=== PATIENT | female | born 1965 | race Caucasian/White ===

== ENCOUNTER 2016-09-18 16:11 | Emergency (ER) | payer BC ==
[2016-09-18 16:21] VITALS: BP 153/76
[2016-09-18] MEDS ORDERED: predniSONE TAB* 20 MG PO ONE (16:31)
[2016-09-18] MEDS ORDERED: Albuterol HFA INHALER* 8 gm MDI INH ONE (16:31)
--- NOTE | 2016-09-18 16:39 | UC ---
Respiratory Complaint HPI - HPI Summary HPI Summary: 51 yo female with cough/runny nose and wheezing x 2 months occasional fever now out of MDI hx JUMANA - History of Current Complaint Chief Complaint: UCRespiratory Stated Complaint: SORE THROAT Time Seen by Provider: 09/18/16 16:24 Hx Obtained From: Patient Hx Last Menstrual Period: n/a Onset/Duration: Gradual Onset, Lasting Weeks Timing: Constant Severity Initially: Mild Severity Currently: Moderate Pain Intensity: 1 Pain Scale Used: 0-10 Numeric Character: Cough: Productive Aggravating Factors: Nothing Alleviating Factors: Nothing Associated Signs And Symptoms: Positive: Fever - intermittent, Wheezing, Nasal Congestion, Sinus Discomfort. Negative: Dyspnea - Allergies/Home Medications Allergies/Adverse Reactions: Allergies Allergy/AdvReac Type Severity Reaction Status Date / Time Sulfa Drugs Allergy Intermediate Hives Verified 09/18/16 16:21 shrimp Allergy Rash Uncoded 09/18/16 16:21 PMH/Surg Hx/FS Hx/Imm Hx Previously Healthy: Yes Endocrine History Of: Denies: Diabetes Cardiovascular History Of: Denies: Cardiac Disorders, Hypertension Respiratory History Of: Reports: Asthma, Bronchitis - Surgical History Surgical History: Yes Surgery Procedure, Year, and Place: L breast calcification 2012. left thumb, CERVICAL BIOPSY - Family History Known Family History: Positive: Hypertension, Diabetes - Social History Alcohol Use: None Substance Use Type: None Smoking Status (MU): Former Smoker Type: Cigarettes Amount Used/How Often: 1/2 PPD Length of Time of Smoking/Using Tobacco: 20+ years Have You Smoked in the Last Year: Yes When Did the Patient Quit Smoking/Using Tobacco: 2 months Household Exposure Type: Cigarettes - Immunization History Most Recent Influenza Vaccination: JAN 2016 Review of Systems Constitutional: Fever Skin: Negative Eyes: Negative ENT: Nasal Discharge Respiratory: Cough Cardiovascular: Negative Gastrointestinal: Negative Genitourinary: Negative Motor: Negative Neurovascular: Negative Musculoskeletal: Negative Neurological: Negative Psychological: Negative All Other Systems Reviewed And Are Negative: Yes Physical Exam Triage Information Reviewed: Yes Appearance: Well-Appearing, No Pain Distress, Well-Nourished Vital Signs: Initial Vital Signs Temp 98.1 F 09/18/16 16:15 Pulse 76 09/18/16 16:15 Resp 18 09/18/16 16:15 BP 153/76 09/18/16 16:15 Pulse Ox 99 09/18/16 16:15 Vital Signs Reviewed: Yes Eyes: Positive: Conjunctiva Clear ENT: Negative: Hearing grossly normal, Nasal drainage, Tonsillar exudate, Trismus, Muffled/hoarse voice Neck: Positive: Supple, Nontender Respiratory: Positive: No respiratory distress, No accessory muscle use, Wheezing Cardiovascular: Positive: RRR, No Murmur Musculoskeletal: Positive: ROM Intact, No Edema Neurological: Positive: Alert Psychological Exam: Normal Skin Exam: Normal UC Diagnostic Evaluation - Laboratory O2 Sat by Pulse Oximetry: 99 - normal/not hypoxic Respiratory Course/Dx - Differential Dx/Diagnosis Provider Diagnoses: acute bronchitis Discharge - Discharge Plan Condition: Stable Disposition: HOME Prescriptions: Amoxicillin (*) [Amoxicillin 875 MG (*)] 875 mg PO BID #20 tab Prednisone [Deltasone] 40 mg PO DAILY #10 tab Patient Education Materials: Acute Bronchitis (ED) Referrals: Dickson Cordero PA [Primary Care Provider] - If Needed Additional Instructions: recheck in 4 days if not better
== END 2016-09-18 16:54 | disposition home or self-care (01) ==
LOC: UCCORT 16:11
DX: J20.9 Acute bronchitis, unspecified (principal); Z87.891 Personal history of nicotine dependence
CPT/HCPCS: 99213; A9270-GY; G0463; J7512

== ENCOUNTER 2017-02-09 19:22 | Emergency (ER) | payer BC ==
[2017-02-09 19:36] VITALS: BP 155/73
[2017-02-09] MEDS ORDERED: Albuterol/Ipratropium NEB.SOL* Albuterol 2.5 MG/Ipratropium 0.5 MG 3 ML INH ONE (20:12)
[2017-02-09] MEDS ORDERED: predniSONE TAB* 20 MG PO ONE (20:52)
--- NOTE | 2017-02-09 21:01 | UC ---
Shortness of Breath HPI - HPI Summary HPI Summary: THREE DAYS OF WORSENING ASTHMA FLARE UPS. HAD ASTHMA FLARE UP 3 DAYS AGO. TREATED WITH ALBUTEROL. HAS HAD SOME WHHEZING SINCE. TODAY WAS IN CONTACT WITH [employer] TODAY ASTHMA WHEEZING SEEMS WORSE. NO CHEST PAIN. NO COUGH. NO FEVER. - History of Current Complaint Chief Complaint: UCRespiratory Stated Complaint: CHEST CONGESTION, ASTHMA Time Seen by Provider: 02/09/17 20:00 Hx Obtained From: Patient Hx Last Menstrual Period: NONE Onset/Duration: Gradual Onset, Lasting Days, Still Present Current Severity: None Aggrevating Factors: Deep Breaths Alleviating Factors: Bronchodilators Associated Signs & Symptoms: Positive: Wheezing - Risk Factors Pulmonary Embolism: Negative Cardiac: Negative Pseudomonas: Negative Tuberculosis: Negative - Allergy/Home Medications Allergies/Adverse Reactions: Allergies Allergy/AdvReac Type Severity Reaction Status Date / Time Sulfa Drugs Allergy Intermediate Hives Verified 02/09/17 19:36 shrimp Allergy Rash Uncoded 02/09/17 19:36 Home Medications: Home Medications Multiple Vitamins W/ Minerals [Centrum Silver 50+Women] 1 tab PO DAILY 02/09/17 [History Confirmed 02/09/17] PMH/Surg Hx/FS Hx/Imm Hx Previously Healthy: Yes - Surgical History Surgical History: Yes Surgery Procedure, Year, and Place: L breast calcification 2012. left thumb, CERVICAL BIOPSY - Family History Known Family History: Positive: Hypertension, Diabetes, Respiratory Disease - Social History Occupation: Employed Full-time Lives: With Family Alcohol Use: Rare Substance Use Type: None Smoking Status (MU): Current Some Day Smoker Type: Cigarettes Amount Used/How Often: 1/2 PPD Length of Time of Smoking/Using Tobacco: 20+ years Have You Smoked in the Last Year: Yes When Did the Patient Quit Smoking/Using Tobacco: 2 months Household Exposure Type: Cigarettes Cessation Counseling: Counseled 3+Min - 10 Min - Immunization History Most Recent Influenza Vaccination: JAN 2016 Review of Systems Constitutional: Negative Skin: Negative Eyes: Negative ENT: Negative Respiratory: Shortness Of Breath, Other - WHEEZING Cardiovascular: Negative Gastrointestinal: Negative Genitourinary: Negative Motor: Negative Neurovascular: Negative Musculoskeletal: Negative Neurological: Negative Psychological: Negative Is Patient Immunocompromised?: No All Other Systems Reviewed And Are Negative: Yes Physical Exam Triage Information Reviewed: Yes Appearance: Well-Appearing, No Pain Distress, Well-Nourished Vital Signs: Initial Vital Signs Temp 97.9 F 02/09/17 19:29 Pulse 82 02/09/17 19:29 Resp 16 02/09/17 19:29 BP 155/73 02/09/17 19:29 Pulse Ox 99 02/09/17 19:29 Vital Signs Reviewed: Yes Eye Exam: Normal ENT Exam: Normal ENT: Positive: Normal ENT inspection, Hearing grossly normal, Pharynx normal, TMs normal Dental Exam: Normal Neck exam: Normal Neck: Positive: Supple, Nontender, No Lymphadenopathy Respiratory: Positive: Chest non-tender, No accessory muscle use, Wheezing. Negative: Respiratory distress, Decreased breath sounds Cardiovascular Exam: Normal Cardiovascular: Positive: RRR, No Murmur, Pulses Normal, Brisk Capillary Refill Abdominal Exam: Normal Abdomen Description: Positive: Nontender, No Organomegaly Musculoskeletal Exam: Normal Neurological Exam: Normal Psychological Exam: Normal Skin Exam: Normal Shortness of Breath Dx - Differential Dx/Diagnosis Differential Diagnosis/HQI/PQRI: Asthma Provider Diagnoses: ASTHMA EXACERBATION Discharge - Discharge Plan Condition: Stable Disposition: HOME Prescriptions: predniSONE TAB* [Deltasone TAB*] 10 mg PO DAILY #28 tab Patient Education Materials: Asthma (ED), Bronchospasm (ED) Referrals: Dickson Cordero PA [Primary Care Provider] -
== END 2017-02-09 21:00 | disposition home or self-care (01) ==
LOC: UCCORT 19:22
DX: J45.901 Unspecified asthma with (acute) exacerbation (principal); F17.210 Nicotine dependence, cigarettes, uncomplicated; Z88.2 Allergy status to sulfonamides; Z91.013 Allergy to seafood
CPT/HCPCS: 99212; A9270-GY; G0463; J7512

== ENCOUNTER 2017-07-04 15:57 | Emergency (ER) | payer BC ==
--- OUTSIDE RECORDS SUMMARY | 2017-07-04 16:08 | XMS REPORT ---
:1965 External Reference #:[id number] Author Organization [facility] Address [address] [place] [id number] Phone [phone] Care Team Providers Name Role Phone Natasha Guido M.D. Care Team Information Supervisor [place] Unavailable Payers Type Date Identification Numbers Payment Provider Subscriber Commercial Effective: Policy Number: Joseph Ralph 2015 [id number] [employer] Name: [address] [address] PayID: [id number] ALEKSANDAR Rogers [address] Problems Description No Active Problems Family History Date Family Member(s) Problem(s) Comments General Diabetes F General Heart Disease Brother - pacer F Social History Type Date Description Comments Cigarette Use Light tobacco smoker (10 or fewer cigarettes/day) ETOH Use Occasionally consumes alcohol Currently Active Patient is currently sexually active STD's No STD History Allergies, Adverse Reactions, Alerts Date Description Reaction Status Severity Comments 03/23/2009 sulfa drugs active Medications Medication Date Status Form Strength Qnty SIG Indications Ordering Provider Albuterol Active Aerosol 90mcg/Act 1unit 2 puffs q4 Unknown /0000 s hrs prn sob Ventolin HFA Active Aerosol 108(90Bas Unknown /0000 e) mcg/Act Flagyl 03/30 Hx Tablets 500mg 14tab 1 by mouth s twice a day Marziale, - x 7 days M.D. 06/09 Diflucan 03/30 Hx Tablets 150mg 2tabs 1 by mouth day 2 and 5 Marziale, - of M.D. 06/09 Cyclobenzaprine HCL Hx Tablets 10mg take 1 Unknown /0000 tablet by - mouth three 02/17 times a day if needed Ibuprofen 00/00 Hx Tablets 800mg take 1 Unknown /0000 tablet by - mouth three 02/17 times a day if needed for pain Methylprednisolone 00 Hx Tablets 4mg take as Unknown (Jonas) /0000 directed - 02/17 Prednisone 00/00 Hx Tablets 20mg take 1 Unknown /0000 tablet by - mouth once 02/17 Azithromycin 00 Hx Tablets 250mg take 1 Unknown /0000 tablet by - mouth once 02/17 Starting Tomorrow Azithromycin 00/ Hx Tablets 250mg take as Unknown /0000 directed - 06/18 Prednisone 00/00 Hx Tablets 20mg take 2 Unknown /0000 tablets by - mouth once 06/18 daily for days Vital Signs Date Vital Result Comment 06/19/2017 BP Systolic 130 mmHg BP Diastolic 84 mmHg Height 64 inches 5'4" Weight 210.00 lb BMI (Body Mass Index) 36.0 kg/m2 06/14/2016 BP Systolic 140 mmHg BP Diastolic 78 mmHg Height 64 inches 5'4" Weight 213.00 lb BMI (Body Mass Index) 36.6 kg/m2 06/09/2015 BP Systolic 122 mmHg BP Diastolic 82 mmHg Height 64 inches 5'4" Weight 205.50 lb BMI (Body Mass Index) 35.3 kg/m2 03/18/2015 BP Systolic 130 mmHg BP Diastolic 82 mmHg Height 64 inches 5'4" Weight 203.12 lb BMI (Body Mass Index) 34.9 kg/m2 02/17/2015 BP Systolic 110 mmHg BP Diastolic 64 mmHg Height 64 inches 5'4" Weight 203.38 lb BMI (Body Mass Index) 34.9 kg/m2 06/03/2014 BP Systolic 130 mmHg BP Diastolic 84 mmHg Height 64 inches 5'4" Weight 206.38 lb BMI (Body Mass Index) 35.4 kg/m2 05/28/2013 BP Systolic 134 mmHg BP Diastolic 86 mmHg Height 64 inches 5'4" Weight 205.38 lb BMI (Body Mass Index) 35.2 kg/m2 05/22/2012 BP Systolic 118 mmHg BP Diastolic 76 mmHg Height 64 inches 5'4" Weight 199.50 lb BMI (Body Mass Index) 34.2 kg/m2 05/17/2011 BP Systolic 118 mmHg BP Diastolic 70 mmHg Height 64 inches 5'4" Weight 200.00 lb BMI (Body Mass Index) 34.3 kg/m2 03/23/2009 BP Systolic 134 mmHg BP Diastolic 62 mmHg Height 64 inches 5'4" Weight 195.00 lb BMI (Body Mass Index) 33.5 kg/m2 Results Test Date Test Result H/L Range Note Laboratory test finding 06/14/2016 ThinPrep Pap Test HPV Normal 1 Regardless High-Risk HPV 06/14/2016 Aptima HPV Normal 2 ThinPrep Pap Test HPV Regardless SEE IMAGE Laboratory test 06/09/2015 Cytology Pap See Note 3 finding Laboratory test 03/18/2015 Affirm Culture -yeast+bv-trich finding Laboratory test 03/18/2015 Vag/Cerv Culture SPECIMEN DESCRI> 4 finding Laboratory test 02/19/2015 Histology [facility] 5 finding <SEE NOTE> Laboratory test 02/19/2015 Urine HCG NEGATIVE (Neg) finding CBC Without Diff 02/17/2015 WBC 5.9 10*3/uL (4.1-11.0) RBC 4.54 10*6/uL (4.00-5.40) HGB 13.2 g/dL (12.0-16.0) HCT 40.5 % (36.0-47.0) MCV 89.1 fL (80.0-95.0) MCH 29.1 pg (27.0-32.0) MCHC 32.6 g/dL (32.0-36.0) RDW 13.4 % (10.5-14.5) PLT 288 10*3/uL (150-450) MPV 9.6 fL (7.1-10.7) Laboratory test 01/13/2015 Surgical Pathology [facility] 6 finding Specimen <SEE NOTE> Laboratory test 12/28/2014 Estradiol @ 21 pg/mL 7 finding Thyroid [place] @ 12/28/2014 TSH,Ultrasensitive @ 0.940 mIU/L (0.360-4.1 70) Laboratory test 12/28/2014 FSH @ 71.6 mIU/mL 8 finding Laboratory test 06/03/2014 Cytology Pap See Note 9 finding Laboratory test 05/28/2013 Cytology Pap See Note 10 finding Laboratory test 05/28/2013 HCG,Quant Preg 2 MIU/ML 11 finding Estradiol @ 50 pg/mL 12 Prolactin @ 7.1 NG/ML 13 Thyroid [place] 05/28/2013 TSH,Ultrasensitive @ 1.500 mIU/L (0.360-4.170 ) @ Laboratory test 05/28/2013 FSH @ 44.3 MIU/ML 14 finding Laboratory test 05/22/2012 [facility] Pap LABORATORY 15 finding ALLIA <SEE NOTE> Xray 05/19/2011 Stero/Local/Guid Left <pending> Breast Biopsy Xray 05/18/2011 Mammography, Diagnostic, <pending> Left Breast Laboratory test 05/17/2011 [facility] Pap LABORATORY 16 finding ALLIA <SEE NOTE> Laboratory test 03/23/2009 [facility] Pap LABORATORY 17 finding ALLIA <SEE NOTE> Laboratory test 03/17/2008 [facility] Pap LABORATORY 18 finding ALLIA <SEE NOTE> 1 SPECIMEN PART A. Cervical, Endocervical, ThinPrep Pap ([employer]) CYTOLOGY HX Other Information:Previous Normal Pap: 2016 Routine Exam FINAL DIAGNOSIS INTERPRETATION: Negative for Intraepithelial Lesion or Malignancy. SPECIMEN ADEQUACY:Satisfactory for evaluation. Endocervical/transformation zone component present. 2 High-Risk HPV HR-HPV: Not Detected Test performed by the FDA-approved Hologic (Gen-Probe) APTIMA HPV test, which detects HPV genotypes: 16, 18, 31, 33, 35, 39, 45, 51, 52, 56, 58, 59, 66, and 68. 3 Interpretation: NEGATIVE FOR INTRAEPITHELIAL LESION OR MALIGNANCY. Specimen Adequacy: SATISFACTORY FOR EVALUATION. Additional Findings: ENDOCERVICAL/TRANSFORMATION ZONE PRESENT. Cytology Laboratory [address] [place] [address], [address] [place] [address] CYTOLOGY REPORT Name: Leni Ralph : 1965 (Age: 49) Sex : F Location: [facility] DIRECTOR OF INDIVIDUAL GIVING Med. Rec. # [id number] Date Collected: 06/09/2015 Billing #: [id number] Date Received: 06/09/2015 Requisition # [id number] Physician(s): NATASHA GUIDO MD Source of Specimen: ENDOCERVICAL/ECTOCERVICAL THIN PREP Clinical Information: Date of Last Menstrual Period: None Provided mas Electronic Signature KEILY Og (ASCP) Reported: 06/14/2015 [employer] Dx Code(s): Z01.419 4 SPECIMEN DESCRIPTION VAGINAL SPECIMEN GROUP B STREP CULT. NEGATIVE: BETA HEMOLYTIC STREPTOCOCCI GROUP B B Y PCR CULTURE RESULTS NORMAL VAGINAL [place] NO NEISSERIA GONORRHOEAE ISOLATED REPORT STATUS FINAL 03/20/[address] [place] [address] Surgical Pathology Report SPECIMEN(S) RECEIVED: A: Endocervical curettings B: Endometrial curettings CLINICAL DIAGNOSIS AND HISTORY: Postmenopausal bleeding GROSS DESCRIPTION: Specimen A received in formalin labeled "endocervical curettings" is a 1.2 x 0.6 x 0.2 cm aggregate of multiple, irregular, fragments of jones red soft tissue and blood tinged mucus. Totally submitted in one cassette, filtered through a biopsy bag. Specimen B received in formalin labeled "endometrial curettings" is a 2.5 x 1.5 x 1.0 cm aggregate of multiple, irregular fragments of jones red soft tissue and dark red clotted blood. Totally submitted in one cassette filtered through a biopsy bag. DIAGNOSIS: A) DESIGNATED ECC: Squamous metaplasia. Multiple levels examined. B) DESIGNATED ENDOMETRIAL CURETTINGS: Inactive endometrium. Multiple levels examined. Processed at Laboratory [facility], Histopathology, [address] [place] [address], [id number]. Reported at Laboratory [facility] at [facility], [address] [place] [address], [phone]. As applicable, positive and negative controls for all immunohistochemical and/or special stains were reviewed and considered appropriate. Reported: 02/22/2015 Electronically Signed Out By Rusty German M.D. [facility] Ava Galvez [facility] This report may include one or more immunohistochemical or in-situ hybridization results. Testing has been developed and the performance characteristics were determined by [facility] as required by CLIA '88 regulations. The tests may not have been approved for a given specific use by the US Food and Drug Administration, but the FDA has determined that such approval is not necessary for clinical use [address] [place] [address] Surgical Pathology Report Specimen(s) Received: A: Endometrial biopsy Clinical Diagnosis and History: {Not Provided} Gross Description: Specimen received in formalin labeled with the patient's name is a 0.5 x 0.4 x 0.1 cm aggregate of multiple irregular, jones white to jones red soft tissue fragments. The specimen is filtered through a biopsy bag and totally submitted in one cassette. emmanuel eb/jbs Diagnosis: DESIGNATED ENDOMETRIAL BIOPSY: Endocervical tissue with extensive squamous metaplasia, ossification, and numerous bacterial colonies. The pattern suggests prolonged Nabothian cyst formation. No definite endometrial cavity tissue is seen on multiple levels examined. Recommend clinical correlation with possible submission of additional material, as clinically indicated. Processed at [facility], Histopathology, [address] [place] [address], [phone]. Reported at [facility] at [facility], [address] [place] [address], [address]. As applicable, positive and negative controls for all immunohistochemical and/or special stains were reviewed and considered appropriate. Reported: 01/15/2015 Electronically Signed Out By Rusty German M.D. paw [facility] Dariana GalvezCDong This report may include one or more immunohistochemical or in-situ hybridization results. Testing has been developed and the performance characteristics were determined by [facility] morris [facility] as required by CLIA '88 regulations. The tests may not have been approved for a given specific use by the US Food and Drug Administration, but the FDA has determined that such approval is not necessary for clinical use. ICD9 Code: A: V71. 7 ESTRADIOL REFERENCE RANGE: MENSTRUATING FEMALES FOLLICULAR PHASE 21-165 PG/ML MIDCYCLE 50-367 PG/ML LUTEAL PHASE 40-259 PG/ML POSTMENOPAUSAL <40 PG/ML NEW METHOD AND REFERENCE RANGE IN USE 05/06/13. RESULTS FROM THIS METHOD ARE SLIGHTLY LOWER THAN RESULTS FROM PREVIOUS METHOD. 8 FSH Reference Range: Males 0.7 - 10.8 mIU/mL Females, Menstruating Follicular Phase 2.3 - 12.6 mIU/mL Mid cycle Peak 5.2 - 17.5 mIU/mL Luteal Phase 1.7 - 12.9 mIU/mL Females, Postmenopausal On Menopausal Hormone Therapy (MHT) 5.9 - 72.8 mIU/mL Not on MHT 12.7 - 132.2 mIU/mL 9 Cytology Laboratory [address] [employer] [facility], [address] [place] [address] CYTOLOGY REPORT Name: Leni Ralph : 1965 (Age: 48) Sex: F Location: [facility] DIRECTOR OF INDIVIDUAL GIVING Med. Rec. # [id number] Date Collected: 06/03/2014 Billing #: [id number] Date Received: 06/03/2014 Requisition # [id number] Physician(s): NATASHA GUIDO MD Source of Specimen: ENDOCERVICAL/ECTOCERVICAL THIN PREP Clinical Information: Date of Last Menstrual Period: None Provided Interpretation: NEGATIVE FOR INTRAEPITHELIAL LESION OR MALIGNANCY. SHIFT IN [place]LLY SUGGESTIVE OF BACTERIAL VAGINOSIS. Specimen Adequacy: SATISFACTORY FOR EVALUATION. Additional Findings: ENDOCERVICAL/TRANSFORMATION ZONE PRESENT. kfs Electronic Signature KEILY Lancaster (ASCP) Reported: 06/05/2014 [facility] Sheldon [employer] [facility] ICD-9 Code(s) V72.31 A; 616.10 10 Cytology Laboratory [address], [address] [place] [address] CYTOLOGY REPORT Name: Leni Ralph : 1965 (Age: 47) Sex: F Location: [facility] DIRECTOR OF INDIVIDUAL GIVING Med. Rec. # [id number] Date Collected: 05/28/2013 Billing #: [id number] Date Received: 05/28/2013 Requisition # [id number] Physician(s): NATASHA GUIDO MD Source of Specimen: ENDOCERVICAL/ECTOCERVICAL THIN PREP Clinical Information: Date of Last Menstrual Period: 04/2013 Specimen Adequacy: SATISFACTORY FOR EVALUATION. ADEQUATE ENDOCERVICAL/TRANSFORMATION ZONE. General Categorization: NEGATIVE FOR INTRAEPITHELIAL LESION OR MALIGNANCY. Descriptive Evaluation: SHIFT IN HOLLY SUGGESTIVE OF BACTERIAL VAGINOSIS. dcl Electronic Signature KEILY Tovar (ASCP) Reported: 05/30/2013 [facility]on [employer] [facility] ICD-9 Code(s) V72.31 A; 616.10 11 INTERPRETATION: LESS THAN 6 NEGATIVE 6 - 10 BORDERLINE (SUGGEST REPEAT IN 48 HOURS) APPROX HCG RANGE WEEKS POST LMP 11 - 130 3 - 4 WEEKS 75 - 2600 4 - 5 WEEKS 850 - 36685 5 - 6 WEEKS 4000 - 097674 6 - 7 WEEKS 75383 - 709024 7 - 12 WEEKS 85673 - 690423 12 - 16 WEEKS 1400 - 12294 16 - 29 WEEKS 940 - 14914 29 - 41 WEEKS 12 ESTRADIOL REFERENCE RANGE: MENSTRUATING FEMALES FOLLICULAR PHASE 21-165 PG/ML MIDCYCLE 50-367 PG/ML LUTEAL PHASE 40-259 PG/ML POSTMENOPAUSAL <40 PG/ML NEW METHOD AND REFERENCE RANGE IN USE 05/06/13. RESULTS FROM THIS METHOD ARE SLIGHTLY LOWER THAN RESULTS FROM PREVIOUS METHOD. 13 Prolactin Reference Range: Males 2.5 - 17.4 ng/mL Females Non- 2.2 - 30.3 ng/mL 8.1 - 347.6 ng/mL Postmenopausal 0.7 - 31.5 ng/mL 14 FSH Reference Range: Males 0.7 - 10.8 mIU/mL Females, Menstruating Follicular Phase 2.3 - 12.6 mIU/mL Mid cycle Peak 5.2 - 17.5 mIU/mL Luteal Phase 1.7 - 12.9 mIU/mL Females, Postmenopausal On Menopausal Hormone Therapy (MHT) 5.9 - 72.8 mIU/mL Not on MHT 12.7 - 132.2 mIU/mL 15 [facility]ORY [facility], [facility]. [address] [place] [id number] GYNECOLOGIC CYTOLOGY REPORT Accession Number: [id number] Source of Specimen(s): A: [facility] Cervical / Endocervical Pap Smear - One Vial Clinical Diagnosis and History: Date of Last Menstrual Period: 04/21/12 Other Clinical Conditions: Last Pap Smear: 05/17/11 REFLEX TO DIGENE HPV ASSAY IF RESULTS OF THIS PAP ARE ASCUS Specimen Adequacy Satisfactory for evaluation Scant/no endocervical component General Categorization Negative for intraepithelial lesion or malignancy Interpretation NEGATIVE FOR INTRAEPITHELIAL LESION OR MALIGNANCY Reported: 05/24/2012 Electronically Signed Out By Usha Arita CT([facility]) [facility] Pathology, PRamon cinda [address] [employer] [facility]. [address] [place] [address] GYNECOLOGIC CYTOLOGY REPORT Accession Number: [id number] Source of Specimen(s): A: [facility] Cervical / Endocervical Pap Smear - One Vial Clinical Diagnosis and History: Date of Last Menstrual Period: 04/26/11 Other Clinical Conditions: Last Pap Smear: 2008 REFLEX TO DIGENE HPV ASSAY IF RESULTS OF THIS PAP ARE ASCUS Specimen Adequacy Satisfactory for evaluation Scant/no endocervical component General Categorization Negative for intraepithelial lesion or malignancy Interpretation NEGATIVE FOR INTRAEPITHELIAL LESION OR MALIGNANCY Reported: 05/19/2011 Electronically Signed Out By Anabelle Horowitz CT([facility]) [facility] Lenny, PDongCDong alvarez 17 [employer] [facility] [employer]. [address] [place] [address] GYNECOLOGIC CYTOLOGY REPORT Accession Number: [id number] Source of Specimen(s): A: [facility] Cervical / Endocervical Pap Smear - One Vial Clinical Diagnosis and History: Date of Last Menstrual Period: 03/11/09 Other Clinical Conditions: Last Pap Smear: 03/07 REFLEX TO DIGENE HPV ASSAY IF RESULTS OF THIS PAP ARE ASCUS Specimen Adequacy Satisfactory for evaluation Scant/no endocervical component General Categorization Negative for intraepithelial lesion or malignancy Interpretation NEGATIVE FOR INTRAEPITHELIAL LESION OR MALIGNANCY Reported: 03/26/2009 Electronically Signed Out By Sienna MICHAUD(ASCP) [facility] mcw ICD9 Code: V72.3 18 [facility], [facility]. [address] [place] [address] GYNECOLOGIC CYTOLOGY REPORT Accession Number: [id number] Source of Specimen(s): A: [facility] Endocervical Pap Smear - One Vial Clinical Diagnosis and History: Date of Last Menstrual Period: 03/04/08 Other Clinical Conditions: REFLEX TO DIGENE HPV ASSAY IF RESULTS OF THIS PAP ARE ASCUS Specimen Adequacy Satisfactory for evaluation Scant/no endocervical component General Categorization Negative for intraepithelial lesion or malignancy Interpretation NEGATIVE FOR INTRAEPITHELIAL LESION OR MALIGNANCY Reported: 03/19/2008 Electronically Signed Out By Usha MICHAUD([facility]) [facility] dss ICD9 Code: V72.31 Procedures Date CPT Code Description Status 02/19/2015 70406 Hysteroscopy:Surgical With BX Of Completed Endometrium,Polypectomy W/Wo D&C 01/13/2015 64771 HSG/Hsono Catheterization And Introduction Of Saline Completed Contrast Encounters Type Date Location Provider CPT E/M Dx Office Visit 06/19/2017 10:00a Main Office Natasha Guido M.D. 99048 Z01.419 Z12.12 Office Visit 06/14/2016 10:20a Main Office Natasha Guido M.D. 46563 Z01.419 Z12.12 Office Visit 06/09/2015 10:20a Main Office Natasha Guido M.D. 46427 Z01.419 Z12.12 Office Visit 03/18/2015 11:30a Main Office Natasha Guido M.D. 81466 N89.8 Office Visit 02/17/2015 10:40a Main Office Natasha Guido M.D. 57943 N95.0 Office Visit 01/13/2015 8:00a Main Office Natasha Guido M.D. 82666 N95.0 Office Visit 06/03/2014 10:00a Main Office Natasha Guido M.D. 88695 V72.31 V76.41 Office Visit 05/28/2013 10:00a Main Office Natasha Guido M.D. 50936 V72.31 V76.41 Office Visit 05/22/2012 10:00a Main Office Natasha Guido M.D. 61832 V72.31 V76.51 Office Visit 05/17/2011 9:40a Main Office Natasha Guido M.D. 21754 V72.31 V76.41 Office Visit 03/23/2009 3:30p Main Office Natasha Guido M.D. 01235 V72.31 V76.41 Office Visit 03/17/2008 2:45p Main Office Natasha Guido M.D. 88351 V72.31 V76.41 Plan of Care Future Appointment(s):06/25/2018 10:00 am - Natasha Guido M.D. 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
[2017-07-04 16:14] VITALS: BP 172/60
--- NOTE | 2017-07-04 17:58 | UC ---
Respiratory Complaint HPI - HPI Summary HPI Summary: cough x 5 days + nasal congestion , pnd, fever, chills, body aches - History of Current Complaint Chief Complaint: UCRespiratory Stated Complaint: FLU SYMPTOMS Time Seen by Provider: 07/04/17 16:08 Hx Obtained From: Patient Hx Last Menstrual Period: NONE Onset/Duration: Gradual Onset, Lasting Weeks - 5, Still Present Timing: Constant Severity Initially: Moderate Severity Currently: Moderate Pain Intensity: 0 Pain Scale Used: 0-10 Numeric Character: Cough: Nonproductive Aggravating Factors: Exertion, Deep Breaths Associated Signs And Symptoms: Positive: Fever, Chills, URI, Nasal Congestion. Negative: Dyspnea, Pleuritic Chest Pain, Wheezing, Hemoptysis, Dizziness, Calf Pain - Allergies/Home Medications Allergies/Adverse Reactions: Allergies Allergy/AdvReac Type Severity Reaction Status Date / Time shrimp Allergy Rash Verified 07/04/17 16:15 Sulfa (Sulfonamide Allergy Hives Verified 07/04/17 16:15 Antibiotics) PMH/Surg Hx/FS Hx/Imm Hx Respiratory History: Asthma - Surgical History Surgical History: Yes Surgery Procedure, Year, and Place: L breast calcification 2012. left thumb, CERVICAL BIOPSY - Family History Known Family History: Positive: Hypertension, Diabetes, Respiratory Disease - Social History Alcohol Use: Rare Substance Use Type: None Smoking Status (MU): Current Some Day Smoker Type: Cigarettes Amount Used/How Often: 1/2 PPD Length of Time of Smoking/Using Tobacco: 20+ years Have You Smoked in the Last Year: Yes When Did the Patient Quit Smoking/Using Tobacco: 2 months Household Exposure Type: Cigarettes - Immunization History Most Recent Influenza Vaccination: JAN 2016 Review of Systems Constitutional: Fever, Chills, Fatigue Skin: Negative Eyes: Negative ENT: Nasal Discharge Respiratory: Cough Cardiovascular: Negative Gastrointestinal: Negative Genitourinary: Negative Motor: Negative Neurovascular: Negative Musculoskeletal: Negative Neurological: Negative Psychological: Negative Is Patient Immunocompromised?: No All Other Systems Reviewed And Are Negative: Yes Physical Exam Triage Information Reviewed: Yes Appearance: Well-Appearing, No Pain Distress, Well-Nourished Vital Signs: Initial Vital Signs Temp 100.7 F 07/04/17 16:10 Pulse 91 07/04/17 16:10 Resp 18 07/04/17 16:10 BP 172/60 07/04/17 16:10 Pulse Ox 100 07/04/17 16:10 Vital Signs Reviewed: Yes Eyes: Positive: Conjunctiva Clear ENT: Positive: Normal ENT inspection, Hearing grossly normal, Pharynx normal, Nasal drainage, TMs normal Neck exam: Normal Neck: Positive: Supple, Nontender, No Lymphadenopathy Respiratory: Positive: Chest non-tender, Lungs clear, Normal breath sounds Cardiovascular: Positive: RRR, No Murmur, Pulses Normal Skin Exam: Normal UC Diagnostic Evaluation - Laboratory O2 Sat by Pulse Oximetry: 100 Respiratory Course/Dx - Differential Dx/Diagnosis Provider Diagnoses: viral illness Discharge - Discharge Plan Condition: Stable Disposition: HOME Prescriptions: Albuterol HFA INHALER* [Ventolin HFA Inhaler*] 2 puff INH Q4H PRN #1 mdi PRN Reason: Wheezing Patient Education Materials: Viral Syndrome (ED) Referrals: Dickson Cordero PA [Primary Care Provider] - 7 Days
== END 2017-07-04 16:43 | disposition home or self-care (01) ==
LOC: UCCORT 15:57
DX: B34.9 Viral infection, unspecified (principal); Z88.1 Allergy status to other antibiotic agents; Z91.013 Allergy to seafood; Z87.891 Personal history of nicotine dependence
CPT/HCPCS: 87502; 99212; G0463

== ENCOUNTER 2018-03-01 21:40 | Emergency (ER) | payer BC ==
[2018-03-01 21:53] VITALS: BP 143/65
[2018-03-01] MEDS ORDERED: Albuterol HFA INHALER* 8 gm MDI INH ONE (21:57)
[2018-03-01] MEDS ORDERED: predniSONE TAB* 20 MG PO ONE (21:58)
--- NOTE | 2018-03-01 22:01 | UC ---
UC General HPI - HPI Summary HPI Summary: COUGHING AND WHEEZING FOR 3 HOURS. USED THE LAST OF HER INHALER. HX OF ASTHMA. - History of Current Complaint Chief Complaint: UCRespiratory Stated Complaint: WHEEZING CONGESTION Time Seen by Provider: 03/01/18 21:54 Hx Obtained From: Patient Hx Last Menstrual Period: n/a Onset/Duration: Gradual Onset Timing: Constant Pain Intensity: 4 Associated Signs & Symptoms: Positive: Cough, SOB, Wheezing. Negative: Chest Pain, Fever - Allergy/Home Medications Allergies/Adverse Reactions: Allergies Allergy/AdvReac Type Severity Reaction Status Date / Time shrimp Allergy Rash Verified 03/01/18 21:49 Sulfa (Sulfonamide Allergy Hives Verified 03/01/18 21:49 Antibiotics) PMH/Surg Hx/FS Hx/Imm Hx Respiratory History: Asthma - Surgical History Surgical History: Yes Surgery Procedure, Year, and Place: L breast calcification 2011. left thumb, CERVICAL BIOPSY - Family History Known Family History: Positive: Hypertension, Diabetes, Respiratory Disease - Social History Occupation: Employed Full-time Alcohol Use: Rare Substance Use Type: None Smoking Status (MU): Current Some Day Smoker Type: Cigarettes Amount Used/How Often: 1/2 PPD Length of Time of Smoking/Using Tobacco: 20+ years Have You Smoked in the Last Year: Yes When Did the Patient Quit Smoking/Using Tobacco: 2 months Household Exposure Type: Cigarettes - Immunization History Most Recent Influenza Vaccination: JAN 2016 Vaccination Up to Date: Yes Review of Systems Constitutional: Negative Skin: Negative Eyes: Negative ENT: Negative Respiratory: Shortness Of Breath, Cough Cardiovascular: Negative Gastrointestinal: Negative Genitourinary: Negative Motor: Negative Neurovascular: Negative Musculoskeletal: Negative Neurological: Negative Psychological: Negative Is Patient Immunocompromised?: No All Other Systems Reviewed And Are Negative: Yes Physical Exam Triage Information Reviewed: Yes Appearance: Well-Appearing Vital Signs: Initial Vital Signs Temp 97.4 F 03/01/18 21:48 Pulse 78 03/01/18 21:48 Resp 18 03/01/18 21:48 BP 143/65 03/01/18 21:48 Pulse Ox 98 03/01/18 21:48 Vital Signs Reviewed: Yes Eyes: Positive: Conjunctiva Clear ENT: Positive: Pharynx normal, TMs normal. Negative: Nasal congestion, Nasal drainage Neck: Positive: Supple, Nontender, No Lymphadenopathy Respiratory: Positive: No respiratory distress, Decreased breath sounds, Other: - FEW SCATTERED WHEEZES Cardiovascular: Positive: RRR, No Murmur Abdomen Description: Positive: Nontender, No Organomegaly, Soft Bowel Sounds: Positive: Present Musculoskeletal: Positive: ROM Intact Neurological: Positive: Alert Psychological: Positive: Age Appropriate Behavior Skin Exam: Normal Course/Dx - Course Course Of Treatment: NON TOXIC. ASTHMA FLARE. PT DECLINED NEB TX. - Differential Dx - Multi-Symptom Provider Diagnoses: ASTHMA FLARE. Discharge - Sign-Out/Discharge Documenting (check all that apply): Patient Departure All imaging exams completed and their final reports reviewed: No Studies - Discharge Plan Condition: Stable Disposition: HOME Prescriptions: predniSONE TAB* [Deltasone 20 MG TAB*] 40 mg PO DAILY 5 Days #10 tab Patient Education Materials: Asthma (DC) Referrals: Dickson Cordero PA [Primary Care Provider] - Additional Instructions: USE THE ALBUTEROL INHALER 2 PUFFS EVERY 6 HOURS - Billing Disposition and Condition Condition: STABLE Disposition: Home
== END 2018-03-01 22:08 | disposition home or self-care (01) ==
LOC: UCCORT 21:40
DX: J45.901 Unspecified asthma with (acute) exacerbation (principal); Z88.2 Allergy status to sulfonamides; Z91.013 Allergy to seafood; F17.210 Nicotine dependence, cigarettes, uncomplicated
CPT/HCPCS: 99212; A9270-GY; G0463; J7512

== ENCOUNTER 2018-04-20 15:19 | Emergency (ER) | payer BC ==
[2018-04-20 15:42] VITALS: BP 153/74
--- NOTE | 2018-04-20 15:57 | UC ---
Complaint Female HPI - HPI Summary HPI Summary: pain burning with urination today---urgency frequency and hematuria began today as well no fever, flank pain nausea or vomiting - History Of Current Complaint Chief Complaint: UCGeneralIllness Stated Complaint: URINARY Time Seen by Provider: 04/20/18 15:48 Hx Obtained From: Patient Hx Last Menstrual Period: n/a ?: No Onset/Duration: Sudden Onset, Lasting Days - 1 Timing: Constant Pain Intensity: 4 Pain Scale Used: 0-10 Numeric Character: Burning Aggravating Factor(s): Urination Alleviating Factor(s): Nothing Associated Signs And Symptoms: Positive: Negative - Allergies/Home Medications Allergies/Adverse Reactions: Allergies Allergy/AdvReac Type Severity Reaction Status Date / Time shrimp Allergy Rash Verified 04/20/18 15:34 Sulfa (Sulfonamide Allergy Hives Verified 04/20/18 15:34 Antibiotics) PMH/Surg Hx/FS Hx/Imm Hx Previously Healthy: No Cardiovascular History: Hypertension - has not been taking bp meds - Surgical History Surgical History: Yes Surgery Procedure, Year, and Place: L breast calcification 2011. left thumb, CERVICAL BIOPSY - Family History Known Family History: Positive: Hypertension, Diabetes, Respiratory Disease - Social History Occupation: Employed Full-time Lives: With Family Alcohol Use: Rare Substance Use Type: None Smoking Status (MU): Current Some Day Smoker Type: Cigarettes Amount Used/How Often: socially Length of Time of Smoking/Using Tobacco: 20+ years Have You Smoked in the Last Year: Yes When Did the Patient Quit Smoking/Using Tobacco: 2 months Household Exposure Type: Cigarettes - Immunization History Most Recent Influenza Vaccination: JAN 2016 Vaccination Up to Date: Yes Review of Systems All Other Systems Reviewed And Are Negative: Yes Constitutional: Positive: Negative Skin: Positive: Negative Eyes: Positive: Negative ENT: Positive: Negative Respiratory: Positive: Negative Cardiovascular: Positive: Negative Gastrointestinal: Positive: Negative Genitourinary: Positive: Dysuria, Hematuria, Frequency, Urgency Motor: Positive: Negative Neurovascular: Positive: Negative Musculoskeletal: Positive: Negative Neurological: Positive: Negative Psychological: Positive: Negative Is Patient Immunocompromised?: No Physical Exam Triage Information Reviewed: Yes Appearance: Well-Appearing, No Pain Distress, Well-Nourished Vital Signs: Initial Vital Signs Temp 97.9 F 04/20/18 15:36 Pulse 76 04/20/18 15:36 Resp 18 04/20/18 15:36 BP 153/74 04/20/18 15:36 Pulse Ox 98 04/20/18 15:36 Vital Signs Reviewed: Yes Eye Exam: Normal Eyes: Positive: Conjunctiva Clear ENT Exam: Normal ENT: Positive: Normal ENT inspection, Hearing grossly normal. Negative: Nasal congestion, Muffled voice, Hoarse voice, Dental tenderness Respiratory Exam: Normal Respiratory: Positive: Normal breath sounds, No respiratory distress, No accessory muscle use Cardiovascular Exam: Normal Cardiovascular: Positive: RRR, Pulses Normal, Brisk Capillary Refill Abdominal Exam: Normal Abdomen Description: Positive: Nontender, No Organomegaly, Soft. Negative: CVA Tenderness (R), CVA Tenderness (L) Bowel Sounds: Positive: Present Musculoskeletal Exam: Normal Musculoskeletal: Positive: Strength Intact, ROM Intact, No Edema Neurological Exam: Normal Neurological: Positive: Alert, Muscle Tone Normal Psychological Exam: Normal Skin Exam: Normal Diagnostics - Laboratory Diagnostic Studies Completed/Ordered: +nit., blood and leuks Complaint Female Dx - Course Course Of Treatment: macrobid, pyridium increase fluids follow with pcp prn - Differential Dx/Diagnosis Provider Diagnosis: UTI (urinary tract infection), Hematuria Discharge - Sign-Out/Discharge Documenting (check all that apply): Patient Departure All imaging exams completed and their final reports reviewed: No Studies - Discharge Plan Condition: Stable Disposition: HOME Prescriptions: Nitrofurantoin Monohyd/M-Cryst [Macrobid 100 mg Capsule] 100 mg PO BID 5 Days # 10 cap Phenazopyridine TAB* [Pyridium 100 mg TAB*] 100 mg PO TID PRN #12 tab PRN Reason: urinary pain and burning Patient Education Materials: Phenazopyridine (By mouth), Urinary Tract Infection in Women (DC), Hypertension (ED) Referrals: Dickson Cordero PA [Primary Care Provider] - 1 Week - Billing Disposition and Condition Condition: STABLE Disposition: Home
== END 2018-04-20 16:17 | disposition home or self-care (01) ==
LOC: UCCORT 15:19
DX: N39.0 Urinary tract infection, site not specified (principal); R31.9 Hematuria, unspecified; B96.20 Unspecified Escherichia coli [E. coli] as the cause of diseases classified elsewhere; Z88.2 Allergy status to sulfonamides; I10 Essential (primary) hypertension; F17.210 Nicotine dependence, cigarettes, uncomplicated
CPT/HCPCS: 81003; 87077; 87086; 87186; 99212; G0463

== ENCOUNTER 2018-08-29 17:39 | Emergency (ER) | payer BC ==
[2018-08-29 17:57] VITALS: BP 144/57
[2018-08-29] MEDS ORDERED: Albuterol/Ipratropium NEB.SOL* Albuterol 2.5 MG/Ipratropium 0.5 MG 3 ML INH ONE (18:17)
--- NOTE | 2018-08-29 18:24 | UC ---
Respiratory Complaint HPI - HPI Summary HPI Summary: patient has a hx of asthma, has had increased SOB and wheezing over the past few days. today her inhaler is not helping. denies any fever, or other signs of infection. has had increased sinus congestion. - History of Current Complaint Chief Complaint: UCRespiratory Stated Complaint: WHEEZING,CHEST TIGHTNESS Time Seen by Provider: 08/29/18 18:13 Hx Obtained From: Patient Hx Last Menstrual Period: n/a ?: No Onset/Duration: Sudden Onset, Lasting Days Timing: Constant Severity Initially: Mild Severity Currently: Moderate Pain Intensity: 4 Character: Cough: Nonproductive Aggravating Factors: Allergens, Exertion, Deep Breaths Alleviating Factors: Bronchodilator Associated Signs And Symptoms: Positive: Dyspnea, Wheezing, Nasal Congestion, Sinus Discomfort - Allergies/Home Medications Allergies/Adverse Reactions: Allergies Allergy/AdvReac Type Severity Reaction Status Date / Time shrimp Allergy Rash Verified 08/29/18 17:58 Sulfa (Sulfonamide Allergy Hives Verified 08/29/18 17:58 Antibiotics) PMH/Surg Hx/FS Hx/Imm Hx Previously Healthy: Yes Respiratory History: Asthma - Surgical History Surgical History: Yes Surgery Procedure, Year, and Place: L breast calcification 2012. left thumb, CERVICAL BIOPSY - Family History Known Family History: Positive: Hypertension, Diabetes, Respiratory Disease - Social History Alcohol Use: Rare Substance Use Type: None Smoking Status (MU): Current Some Day Smoker Type: Cigarettes Amount Used/How Often: socially Length of Time of Smoking/Using Tobacco: 20+ years Have You Smoked in the Last Year: Yes When Did the Patient Quit Smoking/Using Tobacco: 2 months Household Exposure Type: Cigarettes - Immunization History Most Recent Influenza Vaccination: JAN 2016 Vaccination Up to Date: Yes Review of Systems All Other Systems Reviewed And Are Negative: Yes Constitutional: Positive: Negative Skin: Positive: Negative Eyes: Positive: Negative ENT: Positive: Nasal Discharge Respiratory: Positive: Shortness Of Breath, Cough Cardiovascular: Positive: Negative Gastrointestinal: Positive: Negative Genitourinary: Positive: Negative Motor: Positive: Negative Neurovascular: Positive: Negative Musculoskeletal: Positive: Negative Neurological: Positive: Negative Psychological: Positive: Negative Is Patient Immunocompromised?: No Physical Exam Triage Information Reviewed: Yes Appearance: Well-Appearing, Well-Nourished, Pain Distress Vital Signs: Initial Vital Signs Temp 98.5 F 08/29/18 17:54 Pulse 86 08/29/18 17:54 Resp 17 08/29/18 17:54 BP 144/57 08/29/18 17:54 Pulse Ox 100 08/29/18 17:54 Vital Signs Reviewed: Yes Eye Exam: Normal ENT Exam: Normal ENT: Positive: Pharyngeal erythema, TMs normal Dental Exam: Normal Neck exam: Normal Neck: Positive: Supple, Nontender, No Lymphadenopathy Respiratory Exam: Normal Respiratory: Positive: No respiratory distress, No accessory muscle use, Decreased breath sounds - in upper airway, Wheezing, Inspiration Cardiovascular Exam: Normal Cardiovascular: Positive: RRR, No Murmur, Pulses Normal Abdominal Exam: Normal Abdomen Description: Positive: Nontender, No Organomegaly, Soft Bowel Sounds: Positive: Present Musculoskeletal Exam: Normal Neurological Exam: Normal Psychological Exam: Normal Skin Exam: Normal Respiratory Course/Dx - Course Course Of Treatment: hx obtained, exam performed ,meds reviewed, neb treatment given. treaed for asthma exacerbation - Differential Dx/Diagnosis Differential Diagnosis/HQI/PQRI: Asthma, Bronchitis, Laryngitis, Lower Resp Infection, Sinusitis, Tuberculosis Provider Diagnosis: Asthma, Allergic rhinitis Discharge - Sign-Out/Discharge Documenting (check all that apply): Patient Departure All imaging exams completed and their final reports reviewed: No Studies - Discharge Plan Condition: Stable Disposition: HOME Prescriptions: Albuterol 2.5MG/3ML (0.083%)* [Ventolin 2.5 MG/3 ML NEB.CHEYENNE*] 2.5 mg INH Q4H # 50 dose Montelukast Sodium TAB* [Singulair TAB*] 10 mg PO BEDTIME #30 tab predniSONE [Prednisone 20 MG TAB] 40 mg PO DAILY #10 tablet Patient Education Materials: Allergies (ED), Wheezing (ED) Referrals: Dickson Cordero PA [Primary Care Provider] - Additional Instructions: 1. take the medication as prescribed. 2. Rest and use the nebulizer every 4 hours as needed. 3. Follow up with any increased shortness of breath. - Billing Disposition and Condition Condition: STABLE Disposition: Home
== END 2018-08-29 18:47 | disposition home or self-care (01) ==
LOC: UCCORT 17:39
DX: J45.909 Unspecified asthma, uncomplicated (principal); J34.89 Other specified disorders of nose and nasal sinuses; R05 Cough; Z88.2 Allergy status to sulfonamides; Z91.013 Allergy to seafood; Z72.0 Tobacco use
CPT/HCPCS: 99212; A9270-GY; G0463

== ENCOUNTER 2019-05-06 16:56 | Emergency (ER) | payer BC ==
[2019-05-06 17:40] VITALS: BP 140/67
--- NOTE | 2019-05-06 19:02 | UC ---
Skin Complaint HPI - HPI Summary HPI Summary: 53 year old female with no PMH presents with 3 days of lowe back pain, left sided only. Patient states pain started as a burning sensation, then itch, not painful to touch, itch, and pain with movement when skin is moved. pain radiates from mid lower back down into groin in a linear fashion. no leg weakness, no bowel/ bladder complaints/ incontinence. NO prior occurence. + constant stress and patient recently had selfish reaction after eating shrimp a weak ago, causing severe hives. - History of Current Complaint Chief Complaint: UCSkin Time Seen by Provider: 05/06/19 19:01 Stated Complaint: SKIN COMPLAINT Hx Obtained From: Patient Hx Last Menstrual Period: n/a ?: No Onset/Duration: Sudden Onset, Lasting Days - 3 Skin Exposure Onset/Duration: Days Ago Timing: Constant Onset Severity: Mild Current Severity: Moderate Pain Intensity: 5 Pain Scale Used: 0-10 Numeric Location: Discrete - lweft lower back to groin Associated Signs & Symptoms: Positive: Tenderness, Red Streaks Related History: Possible Reaction to: Food - ~ i week ago, resolved - Allergy/Home Medications Allergies/Adverse Reactions: Allergies Allergy/AdvReac Type Severity Reaction Status Date / Time shrimp Allergy Rash Verified 05/06/19 17:41 Sulfa (Sulfonamide Allergy Hives Verified 05/06/19 17:41 Antibiotics) PMH/Surg Hx/FS Hx/Imm Hx Previously Healthy: Yes - Surgical History Surgical History: Yes Surgery Procedure, Year, and Place: L breast calcification 2011. 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 Alcohol Use: Rare Substance Use Type: None Smoking Status (MU): Current Some Day Smoker Type: Cigarettes Amount Used/How Often: socially Length of Time of Smoking/Using Tobacco: 20+ years Have You Smoked in the Last Year: Yes When Did the Patient Quit Smoking/Using Tobacco: 2 months Household Exposure Type: Cigarettes - Immunization History Most Recent Influenza Vaccination: JAN 2016 Vaccination Up to Date: Yes Review of Systems All Other Systems Reviewed And Are Negative: Yes Constitutional: Positive: Negative Skin: Positive: Rash Motor: Positive: Weakness Neurovascular: Positive: Other - increased sensation Psychological: Positive: Negative Is Patient Immunocompromised?: No Physical Exam Triage Information Reviewed: Yes Appearance: Well-Appearing, No Pain Distress, Well-Nourished Vital Signs: Initial Vital Signs Temp 98.1 F 05/06/19 17:34 Pulse 77 05/06/19 17:34 Resp 16 05/06/19 17:34 BP 140/67 05/06/19 17:34 Pulse Ox 99 05/06/19 17:34 Vital Signs Reviewed: Yes Eyes: Positive: Conjunctiva Clear ENT: Positive: Hearing grossly normal Musculoskeletal: Positive: Strength Intact Neurological: Positive: Alert, Other: - SITLT Psychological: Positive: Normal Response To Family Skin: Positive: Other - Erythematous lesions grouped in clusters extending along ~ L2 dermatone from midback to groin. + TTP to light touch. no vesicles noted Course/Dx - Course Course Of Treatment: SHingles - Can be contagious. Please use good hand hygiene, avoid contact with elderly , immunocompromised, / newborns. - Valacyclovir three times daily x 7 days - If symptoms worsen, please return. - Albuterol for asthma, Please follow up with primary physician for future refills. - Differential Diagnoses - Skin Complaint Differential Diagnoses: Varicella Zoster - Diagnoses Provider Diagnosis: Shingles Discharge ED - Sign-Out/Discharge Documenting (check all that apply): Patient Departure All imaging exams completed and their final reports reviewed: No Studies - Discharge Plan Condition: Good Disposition: HOME Prescriptions: Albuterol HFA INHALER* [Ventolin HFA Inhaler*] 1 puff INH Q4H PRN #1 mdi PRN Reason: Wheezing Valacyclovir HCl [Valtrex] 1,000 mg PO TID #21 tablet Patient Education Materials: Shingles (ED) Referrals: Dickson Cordero PA [Primary Care Provider] - Additional Instructions: - Can be contagious. Please use good hand hygiene, avoid contact with elderly , immunocompromised, / newborns. - Valacyclovir three times daily x 7 days - If symptoms worsen, please return. - Albuterol for asthma, Please follow up with primary physician for future refills. - Billing Disposition and Condition Condition: GOOD Disposition: Home
== END 2019-05-06 19:26 | disposition home or self-care (01) ==
LOC: UCCORT 16:56
DX: B02.9 Zoster without complications (principal); J45.909 Unspecified asthma, uncomplicated; F17.210 Nicotine dependence, cigarettes, uncomplicated; Z91.013 Allergy to seafood; Z88.2 Allergy status to sulfonamides
CPT/HCPCS: 99212; G0463